=== PATIENT | female | born 1955 | race Hispanic/Latino ===

== ENCOUNTER 2017-09-12 15:09 | Outpatient (CLI) | payer MEDICARE ==
--- NOTE | 2017-09-13 15:25 | Mammography Report ---
BILATERAL DIGITAL SCREENING MAMMOGRAM with CAD: 09/12/17 15:09:00 CLINICAL: Routine screening.History of bilateral reduction mammoplasty. COMPARISON:09/07/16 and 09/05/15 FINDINGS: The breasts are almost entirely fatty. No mass, architectural distortion or suspicious calcifications. IMPRESSION: No mammographic evidence of malignancy. BI-RADS CATEGORY: 2 -- Benign RECOMMENDATION: Routine mammographic screening in one year. COMMENT: Patient follow-up letters are generated by our [employer] application.
== END 2017-09-12 15:10 | disposition home or self-care (01) ==
LOC: SPVWC 15:09
PROVIDERS: ATTEND Family Medicine
DX: Z12.31 Encounter for screening mammogram for malignant neoplasm of breast (principal); Z98.890 Other specified postprocedural states
CPT/HCPCS: 77067; G0202